=== PATIENT | female | born 1970 | race Caucasian/White ===

== ENCOUNTER 2017-08-15 10:12 | Emergency (ER) | payer BC ==
[2017-08-15] MEDS ORDERED: HYDROmorphone 1 MG/ML Syringe IM ONE (11:30)
[2017-08-15] MEDS ORDERED: Ketorolac 60 MG/2 ML SDV IM ONE (11:30)
[2017-08-15] MEDS ORDERED: Diazepam 2 MG Tab PO ONE (11:31)
--- NOTE | 2017-08-15 11:37 | EDM.PDOC ---
ED HPI GENERAL MEDICAL PROBLEM - General Chief Complaint: Back Pain or Injury Stated Complaint: BACK PAIN Time Seen by Provider: 08/15/17 11:20 Source of Information: Reports: Patient, Family History Limitations: Reports: No Limitations - History of Present Illness INITIAL COMMENTS - FREE TEXT/NARRATIVE: Tahmina presents to the ER today for complaints of low back pain with radiation to buttocks and right leg for 3 days. She reports she started developing muscle twitching of her lower back this past . She states she went in to her chiropractor on Wednesday for an adjustment and he worked on her hips. On Wednesday she developed more pain and today the pain is unbearable for her making it difficult to ambulate. She denies change in sensation to her genitals, she denies incontinence of bowel or bladder as well as fever and chills. Tahmina has tried use of naproxen, biofreeze, heating and ice to try to help her pain. She denies illicit drug use. Lower Back Pain Score (Numeric/FACES): 8 - Related Data Allergies Allergy/AdvReac Type Severity Reaction Status Date / Time No Known Allergies Allergy Verified 08/15/17 10:46 Home Meds: Home Meds Aspirin [Adult Low Dose Aspirin EC] 81 mg PO DAILY 12/19/14 [History] Multivitamin [Multi-Vitamin Daily] 1 tab PO DAILY 08/15/17 [History] Naproxen Sodium [Aleve] 220 mg PO ASDIRECTED 08/15/17 [History] Past Medical History HEENT History: Reports: Impaired Vision Gastrointestinal History: Reports: PUD INSIDE UPHOLSTERER History: Reports: Musculoskeletal History: Reports: Back Pain, Chronic Other Musculoskeletal History: First back injury 4 years ago, goes out once a year - states pinched nerve - Infectious Disease History Infectious Disease History: Reports: Chicken Pox, Mumps - Past Surgical History HEENT Surgical History: Reports: Oral Surgery Other HEENT Surgeries/Procedures: salvatory glands removed GI Surgical History: Reports: Appendectomy, Colonoscopy, EGD Female Surgical History: Reports: Tubal Ligation Social & Family History - Tobacco Use Smoking Status *Q: Never Smoker Years of Tobacco use: 23 Second Hand Smoke Exposure: No - Caffeine Use Caffeine Use: Reports: Coffee - Alcohol Use Days Per Week of Alcohol Use: 7 Number of Drinks Per Day: 4 Total Drinks Per Week: 28 Date of Last Drink: 08/14/17 - Recreational Drug Use Recreational Drug Use: No ED ROS GENERAL - Review of Systems Review Of Systems: See Below Constitutional: Denies: Fever, Chills, Malaise, Weakness HEENT: Reports: No Symptoms Respiratory: Denies: Shortness of Breath, Wheezing, Cough, Sputum, Hemoptysis Cardiovascular: Denies: Chest Pain, Dyspnea on Exertion, Lightheadedness, Palpitations, Syncope Endocrine: Reports: No Symptoms GI/Abdominal: Reports: Nausea. Denies: Abdominal Pain, Constipation, Diarrhea, Stool Incontinence, Vomiting : Denies: Dysuria, Flank Pain, Frequency, Pain, Urgency, Urinary Retention Musculoskeletal: Reports: Back Pain, Muscle Stiffness, Other (Pain with radiation to bilateral buttocks and right posterior leg. ) Skin: Reports: No Symptoms Neurological: Reports: Difficulty Walking, Other (Difficulty walking due to pain.). Denies: Numbness, Tingling, Weakness Psychiatric: Reports: No Symptoms Hematologic/Lymphatic: Reports: No Symptoms Immunologic: Reports: No Symptoms ED EXAM,LOWER BACK PAIN/INJURY - Physical Exam Exam: See Below Text/Narrative:: Tahmina is an alert, oriented and pleasant 47 year old female presenting to the ER for complaints of acute on chronic low back pain with radiation across her lower back and to bilateral buttocks, right posterior leg. She has tried the chiropractor, NSAIDs, heat, ice and biofreeze to try to help her pain with minimal success. She has the most pain with sitting and standing. She denies loss of sensation to genitals or incontinence of urine and stool. Exam Limited By: No Limitations General Appearance: Alert, WD/WN, Moderate Distress Eye Exam: Bilateral Eye: EOMI, Normal Inspection, PERRL Throat/Mouth: Normal Inspection, Normal Lips, Normal Teeth, Normal Gums, Normal Oropharynx, Normal Voice, No Airway Compromise Head: Atraumatic, Normocephalic Neck: Normal Inspection, Supple, Non-Tender, Full Range of Motion. No: Lymphadenopathy (R), Lymphadenopathy (L) Respiratory/Chest: No Respiratory Distress, Lungs Clear, Normal Breath Sounds, No Accessory Muscle Use, Chest Non-Tender Cardiovascular: Normal Peripheral Pulses, Regular Rate, Rhythm, No Edema, No Murmur, No Rub GI/Abdominal: Normal Bowel Sounds, Soft, Non-Tender, No Distention, No Mass Back Exam: Decreased Range of Motion, Muscle Spasm. No: CVA Tenderness (R), CVA Tenderness (L), Paraspinal Tenderness, Vertebral Tenderness Extremities: Normal Inspection, Non-Tender, No Pedal Edema, Normal Capillary Refill, Limited Range of Motion, Other (Limited ROM due to back pain. ) Neurological: Alert, Normal Mood/Affect, Normal Dorsiflexion, CN II-XII Intact, Normal Plantar Flexion, Normal Gait, Normal Reflexes, No Motor/Sensory Deficits , Oriented x 3, Straight Leg Raise (L), Straight Leg Raise (R), Difficulty Walking, Other (Right straight leg raise positive for pain at 90 degrees, left leg raise positive at 45 degrees. ). No: Saddle Anesthesia DTR - Lower Extremities: 2+: Knee (R), Knee (L), Ankle (R), Ankle (L) Psychiatric: Normal Affect, Normal Mood Skin Exam: Warm, Dry, Intact, Normal Color, No Rash Lymphatic: No Adenopathy Course - Vital Signs Last Recorded V/S: Last Vital Signs Temp 36.3 C 08/15/17 10:56 Pulse 70 08/15/17 12:43 Resp 20 08/15/17 12:43 BP 148/78 H 08/15/17 12:43 Pulse Ox 99 08/15/17 12:43 - Orders/Labs/Meds Orders: Active Orders 24 hr Category Date Time Status Lumbar Spine Comp wo Cont [MR] Stat Exams 08/15/17 13:17 Ordered Meds: Medications Discontinued Medications Generic Name Dose Route Start Last Admin Trade Name Freq PRN Reason Stop Dose Admin Diazepam 2 mg 08/15/17 11:31 08/15/17 11:55 Valium PO 08/15/17 11:32 2 mg ONETIME ONE Administration Hydromorphone HCl 1 mg 08/15/17 11:30 08/15/17 11:55 Dilaudid IM 08/15/17 11:31 1 mg ONETIME ONE Administration Ketorolac Tromethamine 60 mg 08/15/17 11:30 08/15/17 11:54 Toradol IM 08/15/17 11:31 60 mg ONETIME ONE Administration - Re-Assessments/Exams Free Text/Narrative Re-Assessment/Exam: 08/15/17 11:[address] Del Castillo. We will provide medication for pain relief and set her up for an MRI tomorrow with follow up of Dr. Manny Rothman. 08/15/17 13:13 Patient reports improvement of pain. She will be scheduled to have an MRI of lumbosacral tomorrow. Departure - Departure Time of Disposition: 13:18 Disposition: Home, Self-Care 01 Condition: Fair Clinical Impression: Lumbar back pain with radiculopathy affecting right lower extremity - Discharge Information Instructions: Low Back Sprain With Rehab-SportsMed Referrals: Eugenia Escalante PA [Primary Care Provider] - Forms: ED Department Discharge Additional Instructions: You have been treated for lumbar back pain with radiculopathy affecting the right leg. You were given toradol and dilaudid IM while in the emergency room with oral valium. It is best for you to rest, take cyclobenzaprine as directed for muscle relaxant along with your naproxen (Aleve). You may also use acetaminophen and hot packs for pain as needed. You have been provided tramadol 50mg tablets to take twice per day as needed for severe back pain (#6). An MRI has been ordered and you will be contacted tomorrow to schedule a time to complete the imaging. Follow up with Dr. Manny Rothman this week for further management of your pain. - My Orders Last 24 Hours: My Active Orders 08/15/17 13:17 Lumbar Spine Comp wo Cont [MR] Stat - Assessment/Plan Last 24 Hours: My Active Orders 08/15/17 13:17 Lumbar Spine Comp wo Cont [MR] Stat Assessment:: Lumbar back pain with radiculopathy affecting right lower extremity Plan: Patient treated for lumbar back pain with radiculopathy affecting the right leg. She was given toradol and dilaudid IM while in the emergency room with oral valium. It is best for her to rest, take cyclobenzaprine as directed for muscle relaxant along with your naproxen (Aleve). She may also use acetaminophen and hot packs for pain as needed. She has been provided tramadol 50mg tablets to take twice per day as needed for severe back pain (#6). An MRI Lumbar/sacral without contrast has been ordered and she will be contacted tomorrow to schedule a time to complete the imaging. Follow up with Dr. Manny Rothman this week for further management of back pain.
[2017-08-15 12:44] VITALS: BP 148/78
== END 2017-08-15 13:36 | disposition home or self-care (01) ==
LOC: JP.ED 10:12
DX: M54.16 Radiculopathy, lumbar region (principal); Z79.82 Long term (current) use of aspirin; Z79.899 Other long term (current) drug therapy
CPT/HCPCS: 96372; 99284; A9270; J1170; J1885

== ENCOUNTER 2019-12-04 06:44 | Day surgery (SDC) | payer BC ==
[2019-12-04] MEDS ORDERED: Sodium Chloride 0.9% 1,000 ML IV SCH (07:15)
[2019-12-04] MEDS ORDERED: Midazolam 1 MG/ML 2 ML SDV ONE (07:35)
[2019-12-04] MEDS ORDERED: fentaNYL 100 MCG/2 ML SDV ONE (07:35)
[2019-12-04] MEDS ORDERED: Propofol 200 MG/20 ML SDV ONE ×2 (07:35→10:53)
[2019-12-04 09:27] VITALS: BP 155/88; PULSE 67
--- NOTE | 2019-12-05 09:24 | PROC ---
DATE OF PROCEDURE: 12/04/2019 SURGEON: Luis Enrique Sheppard MD PROCEDURE: Colonoscopy. PRE-PROCEDURE DIAGNOSIS: Family history of colon cancer. POSTPROCEDURE DIAGNOSIS: 1. Family history of colon cancer. 2. Sigmoid diverticulosis. INDICATION: Risk and goals of procedure were reviewed with the patient. She gave informed consent to proceed. DESCRIPTION OF PROCEDURE: After admission, she was brought back to the endoscopy room. Sedation monitoring provided by Charlie from the Anesthesia Service. A time-out was held prior to the procedure to confirm right patient, right side, right procedure, as well as to review potential risks. After adequate sedation, she was placed in left lateral decubitus position. Digital rectal examination was unremarkable. The flexible colonoscope was then placed and advanced out through the length of the colon to the cecum. Scope was then slowly withdrawn back through the entire length of the colon. She was noted to have scattered sigmoid diverticula. No other mucosal polyps, masses, or lesions were seen and the procedure was, otherwise, completed without complication. She will be monitored in the [facility] in outpatient area until fully recovered from IV sedation and then discharged to home. Luis Enrique Sheppard MD /[id number]
== END 2019-12-04 09:35 | disposition home or self-care (01) ==
LOC: JP.SDS 06:44
PROVIDERS: ATTEND Hospitalist
DX: Z12.11 Encounter for screening for malignant neoplasm of colon (principal); K57.30 Diverticulosis of large intestine without perforation or abscess without bleeding; Z80.0 Family history of malignant neoplasm of digestive organs
CPT/HCPCS: 45378; J2250; J2704; J3010; J7030

== ENCOUNTER 2022-07-02 13:03 | Emergency (ER) | payer BC ==
[2022-07-02 13:24] VITALS: BP 146/85; PULSE 105
[2022-07-02] MEDS ORDERED: Lidocaine 2% Viscous Solution 15 ML UD PO ONE (14:14)
== END 2022-07-02 14:55 | disposition home or self-care (01) ==
LOC: JP.ED 13:03
DX: J04.0 Acute laryngitis (principal); Z79.899 Other long term (current) drug therapy; Z90.49 Acquired absence of other specified parts of digestive tract
CPT/HCPCS: 99284; A9270